=== PATIENT | male | born 1955 | race Caucasian/White ===

== ENCOUNTER 2017-01-21 02:55 | Emergency (ER) | payer BC ==
[~2017-01-21] VITALS: Ht 185.4 cm; Wt 104.5 kg
[2017-01-21] MEDS ORDERED: LOSARTAN POTASS25 MG PO (03:53)
[2017-01-21] MEDS ORDERED: NORCO 5/3251 TABLET PO (04:53)
[2017-01-21 05:54] VITALS: BP 141/76
[2017-01-21 07:10] LABS: SYNOVIAL FLUID PROTEIN 5.7 G/DL
[2017-01-21 07:25] LABS: BODY FLUID EOSINOPHILS 4 % (0-25); BODY FLUID RBC'S 3871000 /MM^3 (0-100); BODY FLUID WBC'S 2698 /MM^3 (0-500); MONONUCLEAR WBC'S 37 %; POLYNUCLEAR WBC'S 59 % (0-25)
[2017-01-21 07:30] LABS: CRYSTALS NO CRYSTALS SEEN
== END 2017-01-21 05:55 | disposition home or self-care (01) ==
LOC: EME 02:55
PROVIDERS: Emergency Medicine
PROC: 0S9D3ZZ Drainage of Left Knee Joint, Percutaneous Approach (ICD-10-PCS; principal; 2017-01-21)
DX: M25.062 Hemarthrosis, left knee (principal); M25.462 Effusion, left knee; Z96.659 Presence of unspecified artificial knee joint
CPT/HCPCS: 73564; 82945 91; 84157; 87205; 89051; 89060; 99281; 99285; J2270